=== PATIENT | male | born 1970 | race Caucasian/White ===

== ENCOUNTER → 2020-11-26 | Outpatient (CLI) | payer BC ==
[~2020-11-26] MED LIST: ISOVUE-300 61% 50ML VIAL As Ordered ONE; PROHANCE 279.3MG/ML 5ML VIAL As Ordered ONE
--- NOTE | 2020-11-26 10:09 | REP ---
INDICATION: LT SHOULDER PAIN. COMPARISON: None. TECHNIQUE: Coronal oblique T1, T2 fat sat, sagittal oblique T2 fat sat, axial T2 fat sat, gradient echo. Post arthrogram T1 fat sat and T2 fat sat in multiple planes. FINDINGS: A metallic screw in the anterior glenoid causes extensive artifact and obscures most of the glenoid and anterior glenohumeral joint. Rotator cuff: Mild supraspinatus tendinopathy diffusely. I suspect a partial undersurface tear of the distal supraspinatus tendon. Acromioclavicular joint: There are mild hypertrophic degenerative changes at the acromioclavicular joint. Acromion: Type 1, there is an os acromiale. Biceps Tendon: In bicipital groove, no tenosynovitis. Hill Sach's deformity: There appears to be mild Hill-Sachs deformity of the humeral head. Deltoid muscle: No abnormal signal. Biceps labral complex: Intact. Labrum: No SLAP tear is seen. The posterior labrum is intact. Other portions of the labrum are obscured by artifact. Cartilage: Not visualized. Bone marrow: There are mild subcortical cystic changes in the superolateral humeral head. Joint fluid: No effusion. IMPRESSION: A metallic screw in the anterior inferior glenoid causes blooming artifact which somewhat limits the exam. Mild supraspinatus tendinopathy with suspected partial undersurface tear distally. Mild hypertrophic degenerative changes acromioclavicular joint. Os acromiale. Mild Hill-Sachs deformity of the humeral head. No evidence of SLAP tear or posterior labral tear. Other portions of the labrum are obscured. <Electronically signed by Asif Lainez > 11/26/20 [id number]
--- NOTE | 2020-12-02 15:18 | REP ---
INDICATION: LT SHOULDER PAIN COMPARISON: None. TECHNIQUE: The procedure was performed under the direct supervision of Dr. Lainez. The benefits and risks including but not limited to pain, infection, bleeding and anaphylaxis were explained to the patient and informed consent was obtained. The left glenohumeral joint space was localized using fluoroscopic guidance. The skin was prepped and draped in a sterile fashion. 1% lidocaine was used as a local anesthetic. Using fluoroscopic guidance a 22 gauge spinal needle was inserted and advanced into the joint. 0.5 ml of Isovue-300 was injected to verify placement. 11 ml of a solution containing 20 ml of sterile saline and 0.15 ml of ProHance was injected into the joint. The needle was removed and the patient was taken to MRI for postprocedural imaging. The patient tolerated the procedure well and there were no immediate complications. Less than 6 seconds of fluoro time was utilized for this procedure. FINDINGS: None IMPRESSION: Fluoro guidance for left shoulder MRI arthrogram injection. <Electronically signed by Ton Ramirez > 11/26/20 [id number] <Electronically signed by Asif Lainez > 11/26/20 [id number]
== END ==
LOC: M RADPRO 06:16
PROVIDERS: ATTEND Orthopaedic Surgery
DX: R93.7 Abnormal findings on diagnostic imaging of other parts of musculoskeletal system (principal); M25.512 Pain in left shoulder
CPT/HCPCS: 23350; 73223; 77002; A9576; Q9967

== ENCOUNTER → 2021-08-25 | Outpatient (CLI) | payer BC | LOC: M LABSMTC 09:04 | PROVIDERS: ATTEND Anesthesiology | DX: Z01.812 Encounter for preprocedural laboratory examination (principal) ==

== ENCOUNTER 2021-08-30 08:22 | Day surgery (SDC) | payer BC ==
[~2021-08-30] VITALS: Ht 182.9 cm; Wt 89.4 kg
[~2021-08-30 08:22] MED LIST changes: -ISOVUE-300 61% 50ML VIAL As Ordered ONE; +NS 1,000 ML IV ONE; -PROHANCE 279.3MG/ML 5ML VIAL As Ordered ONE
[2021-08-30] MEDS ORDERED: propofoL 200 MG/20 ML VIAL As Ordered ONE (09:54)
[2021-08-30] MEDS ORDERED: LIDOCAINE 2% 100MG/5ML SDV (FOR ANES.) As Ordered ONE (09:54)
[2021-08-30] MEDS ORDERED: GLYCOPYRROLATE INJ 0.2 MG/ML 2 ML VIAL As Ordered ONE (09:54)
[2021-08-30 10:35] VITALS: BP 110/69
== END 2021-08-30 10:38 | disposition home or self-care (01) ==
LOC: M OPP 08:22
PROVIDERS: ATTEND Internal Medicine Gastroenterology
DX: Z12.11 Encounter for screening for malignant neoplasm of colon (principal); D12.2 Benign neoplasm of ascending colon; K57.30 Diverticulosis of large intestine without perforation or abscess without bleeding; K64.0 First degree hemorrhoids